=== PATIENT | female | born 2000 | race Caucasian/White ===

== ENCOUNTER 2025-05-25 18:51 | Inpatient (IN) | payer BC, OTHER ==
[~2025-05-25] VITALS: Ht 154.9 cm; Wt 64.0 kg
--- NOTE | 2025-05-25 19:23 | ED.PDOC ---
CAMPAIGN MANAGEMENT SPECIALIST HPI Comments 24 y/o F, with a history of DM I - on Humalog and Lantus, presents with c/c nausea, vomiting, and nonradiating, lower abdominal pain. Patient reports on being 6x weeks with her second , currently ([id number]). Endorsement of 3x day history of symptoms. Pain occurs whenever vomiting and is described as pressure-like in quality. Associated decrease food and liquid intake secondary to vomiting. Last CAMPAIGN MANAGEMENT SPECIALIST visit on 05/22/25; Ultrasound performed then was benign. No recent injuries, sexual activity, prior ailments, or additional pertinent history reported. Patient denies having any vaginal bleeding or discharge, urinary symptoms, bloody or bilious vomitus, constipation, or further associated symptoms. Chief Complaint: Nausea/Vomiting Time Seen by MD: 19:05 Reviewed Notes: Nurses Notes, Medications, Allergies Allergies: Coded Allergies: NO KNOWN ALLERGIES (Unverified , 05/25/25) Information Source: Patient Mode of Arrival: Ambulatory Timing: Days Prehospital treatment: None Severity: Moderate Vaginal Discharge: None Vaginal Lesions: None Vaginal Mass: None Onset Of Mass/Bleeding: Spontaneous Sexual Activity: Last Consensual [place]: Months Control: None History of: Current Blood Type: Unknown Associated Signs and Symptoms: Abdominal Pain, N/V Past Medical History PAST MEDICAL HISTORY: DM (type I - On 30 units/day Lantus and Humalog) Surgical History: Denies all surgeries 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: 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 all 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 SUPERVISOR Hx 2 Para 1 AB 0 Family History Family History: Unknown Social History Smoker: Non-Smoker Alcohol: Denies ETOH Use Drugs: Denies Drug Use Lives In: Home All Other Systems: Reviewed and Negative (Comprehensive review of systems are negative unless otherwise stated in HPI) Physical Exam General Appearance: No Apparent Distress, Normal HEENT: Normal ENT Inspection, Pharynx Normal, TMs Normal, Other (dry mucus membranes; no fruity breathe) Neck: Full Range of Motion, Non-Tender, Normal, Normal Inspection Respiratory: Chest Non-Tender, Lungs Clear, No Accessory Muscle Use, No Respiratory Distress, Normal Breath Sounds Cardiovascular: No Edema, No JVD, No Murmur, No Gallop, Normal Peripheral Pul ses, Tachycardia (regular rhythm) Breast Exam: Deferred Gastrointestinal: No Organomegaly, Non Tender, No Pulsatile Mass, Normal Bowel Sounds, Soft Genitalia: Deferred Pelvic: Deferred Rectal: Deferred Extremities: No calf tenderness, Normal capillary refill, Normal inspection, Normal range of motion, Non-tender, No pedal edema Musculoskeletal : Apperance: Normal Neurologic: Alert, research associate professor II-XII nml as Tested, No Motor Deficits, Normal Affect, Normal Mood, No Sensory Deficits Cerebellar Function: Normal Reflexes: Normal Skin: Dry, Normal Color, Warm Lymphatic: No Adenopathy Was a procedure done? Was a procedure done?: No Differential Diagnosis (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 SUPERVISOR) Vaginal Bleeding: N/A Mass / Lesion: N/A Vaginal Discharge: N/A Comments Hyperemesis gravidarum, dehydration, electrolyte imbalance, at-risk , viral syndrome, dka, hyperosmolar, nonketotic syndrome, euglycemic diabetic ketoacidosis X-Ray, Labs, Meds, VS Vital Signs Date Time Temp Pulse Resp B/P (MAP) Pulse Ox O2 Delivery O2 Flow Rate FiO2 05/25/25 18:53 98.5 118 15 140/84 97 98.5 Lab Test 05/25/25 19:22 Range/Units White Blood Count 13.6 H 4.4-10.8 10^3/uL Red Blood Count 5.02 4.0-5.20 10^6/uL Hemoglobin 14.9 12.2-16.2 g/dL Hematocrit 43.2 36.0-46.0 % Mean Corpuscular Volume 86.1 80.0-100.0 fL Mean Corpuscular Hemoglobin 29.7 28.0-32.0 pg Mean Corpuscular Hemoglobin Concent 34.5 32.0-36.0 g/dL Red Cell Distribution Width 13.3 11.8-14.3 % Platelet Count 423 140-450 10^3/uL Mean Platelet Volume 7.8 6.9-10.8 fL Neutrophils (%) (Auto) 83.2 H 37.0-80.0 % Lymphocytes (%) (Auto) 10.4 10.0-50.0 % Monocytes (%) (Auto) 5.5 0.0-12.0 % Eosinophils (%) (Auto) 0.5 0.0-7.0 % Basophils (%) (Auto) 0.4 0.0-2.0 % Neutrophils # (Auto) 11.3 H 1.6-8.6 10 ^3/uL Lymphocytes # (Auto) 1.4 0.4-5.4 10 ^3/uL Monocytes # (Auto) 0.7 0-1.3 10 ^3/uL Eosinophils # (Auto) 0.1 0-0.8 10 ^3/uL Basophils # (Auto) 0 0-0.2 10 ^3/uL Nucleated Red Blood Cells 0.0 % Sodium Level 135 L 136-145 mmol/L Potassium Level 3.9 3.5-5.1 mmol/L Chloride Level 102 98-107 mmol/L Carbon Dioxide Level 14 L 20-31 mmol/L Anion Gap 19 H 5-15 Blood Urea Nitrogen 12 9-23 mg/dL Creatinine 0.83 0.550-1.02 mg/dL Glomerular Filtration Rate Calc 100 >90 mL/min BUN/Creatinine Ratio 14.5 10.0-20.0 Serum Glucose 214 H 74-106 mg/dL Calcium Level 9.6 8.7-10.4 mg/dL Current Medications Medications (Trade) Dose Ordered Sig/Nando Route Start Time Stop Time Status Last Admin Sodium Chloride 1,000 ml @ 1,000 mls/hr Q1H ONCE IV 05/25/25 19:15 05/25/25 20:14 DC 05/25/25 19:39 Ondansetron HCl (Zofran Po) 4 mg ONCE ONCE PO 05/25/25 19:15 05/25/25 19:16 DC 05/25/25 19:41 Time of 1ST Reevaluation: 19:35 Reevaluation 1ST: Unchanged Patient Education/Counseling: Diagnosis, Treatment, Need For Follow Up Family Education/Counseling: Diagnosis, Treatment, Need For Follow Up Comments He is a diabetic patient who is about six weeks and had a normal ultrasound two days ago. However she has been out over NovoLog insulin the for few days. And now she is has nausea and vomiting. The workup shows that she is in diabetic ketoacidosis. She will be admitted for further treatment. Additional Information I reviewed the following notes from patient's past medical encounters: N/A The following tests were ordered, and results were reviewed by me: Marcus Miller MP, CBC, UA Additional Information was gathered from interviewing the following independent historians: N/A I reviewed and agreed with the following test results read by other providers: I discussed treatment and results with medical personnel. Departure 1 Departure Time of Disposition: 21:00 Impression: Primary Impression: DKA, type 1 Qualified Codes: E10.10 - Type 1 diabetes mellitus with ketoacidosis without coma Additional Impression: Noncompliance Disposition: ADMITTED INPATIENT Admit to: ICU Condition: Serious Critical Care Note Critical Care Time?: Yes (55 min-critical care time only) Critical care comment: Due to concerns for patients condition deteriorating, the care required my highest level of attention and readiness to intervene. I assessed the patient, reviewed the medical records, ordered the appropriate tests and treatments, then reassessed for results and responsiveness. I communicated with medical personnel and consultants and formulated a plan of care. Total critical care time excludes any procedures Stability Stability form required: No Heart Score Heart Score: Heart Score Response (Comments) Value History N/A 0 EKG N/A 0 Age N/A 0 Risk Factors N/A 0 Troponin N/A 0 Total 0 I personally scribed for FITO SAMUELS MD ([email or web address]) on 05/25/25 at 19:23. Electronically submitted by Marty Auguste ([email or web address]). FITO SAMUELS MD May 25, 2025 19:23
[2025-05-25 19:35] LABS: Chloride 102 mmol/L (98-107); Potassium 3.9 mmol/L (3.5-5.1)
[2025-05-25 19:36] LABS: Anion Gap 19 (5-15); Carbon Dioxide 14 mmol/L (20-31); Sodium 135 mmol/L (136-145)
[2025-05-25 19:37] LABS: Calcium 9.6 mg/dL (8.7-10.4); Hematocrit 43.2 % (36.0-46.0); Hemoglobin 14.9 g/dL (12.2-16.2); Mean Corpuscular Hemoglobin 29.7 pg (28.0-32.0); Mean Corpuscular Volume 86.1 fL (80.0-100.0); Nucleated Red Blood Cells % 0.0 %
[2025-05-25] MEDS: SODIUM CHLORIDE 0.9% 1,000 ML IV ONE (19:39)
[2025-05-25 19:41] LABS: BUN/Creatinine Ratio 14.5 (10.0-20.0); Blood Urea Nitrogen 12 mg/dL (9-23)
[2025-05-25] MEDS: ONDANSETRON ODT 4 MG TAB PO ONE (19:41)
[2025-05-25 19:42] LABS: Glucose 214 mg/dL (74-106)
[2025-05-25] MEDS: ACCU-CHEK COMFORT CURVE STRIP VI SCH (21:00)
[2025-05-25 21:50] LABS: Magnesium 1.8 mg/dL (1.6-2.6)
[2025-05-25 21:57] VITALS: PULSE 100; RESP 20; O2SAT 95
[2025-05-25] MEDS: SODIUM CHLORIDE 0.9% 1,000 ML IV SCH ×2 (22:07→23:30)
[2025-05-25] MEDS: INSULIN LANTUS (GLARGINE) 1 /0.01ml (100units/ml) SC ONE (22:10)
[2025-05-25] MEDS: INSULIN DRIP 100 UNIT/100ML 100 ML IV SCH (23:25)
[2025-05-25] MEDS ORDERED: NITROGLYCERIN 0.4 MG SL TAB SL PRN (23:30)
[2025-05-25] MEDS ORDERED: DOCUSATE SOD 100 MG CAP PO PRN (23:30)
[2025-05-25] MEDS ORDERED: MORPHINE SULFATE INJ 2 MG/ml SYRG IV PRN (23:30)
[2025-05-25 23:45] VITALS: PULSE 98; RESP 20; O2SAT 98
[2025-05-26] VITALS (13 sets, daily range): BP systolic 122–133; BP diastolic 63–76; PULSE 79–100; RESP 14–18; TEMP 97.8–98.8; O2SAT 97–100
[2025-05-26] MEDS: SODIUM CHLORIDE 0.9% 1,000 ML IV SCH ×2 (01:00→03:00)
[2025-05-26] MEDS: D5W/SOD CHLO 0.9% 1,000 ML IV SCH (03:30)
[2025-05-26] MEDS: ONDANSETRON HCL 4 MG/2 ML VIAL IV ONE (04:00)
[2025-05-26] MEDS ORDERED: PROM6.2520 PO (04:20)
[2025-05-26] MEDS: DEXTROSE (50%) 50ML SYRG IV PRN (04:20)
[2025-05-26] MEDS: FOLIC ACID 1 MG in D5W 5% 50 ML INJ ONE (04:30)
[2025-05-26] MEDS: PYRIDOXINE HCL 50 MG TAB PO ONE (04:30)
[2025-05-26] MEDS: LINEZOLID 600MG/300ML 300 ML IV SCH (05:02)
[2025-05-26 05:49] LABS: COVID19 ANTIGEN SOFIA FIA NEGATIVE (NEGATIVE)
[2025-05-26 05:51] LABS: Hematocrit 36.3 % (36.0-46.0); Hemoglobin 12.4 g/dL (12.2-16.2); Mean Corpuscular Hemoglobin 30.1 pg (28.0-32.0); Mean Corpuscular Volume 87.8 fL (80.0-100.0); Nucleated Red Blood Cells % 0.0 %
[2025-05-26] MEDS: CEFEPIME 1GM/ 50ML 50 ML IV SCH (06:00)
[2025-05-26 06:29] LABS: Alanine Aminotransferase 16 U/L (7-40); Albumin 3.9 g/dL (3.2-4.8); Alkaline Phosphatase 67 U/L (46-116); Anion Gap 14 (5-15); BUN/Creatinine Ratio 21.1 (10.0-20.0); Blood Urea Nitrogen 12 mg/dL (9-23); Potassium 3.7 mmol/L (3.5-5.1); Sodium 138 mmol/L (136-145); Total Protein 5.9 g/dL (5.7-8.2)
[2025-05-26 06:30] LABS: Bilirubin, Total 0.8 mg/dL (0.2-1.0)
[2025-05-26 06:34] LABS: Thyroid Stimulating Hormone 1.56 uIU/mL (0.55-4.78)
[2025-05-26 06:36] LABS: Calcium 8.0 mg/dL (8.7-10.4); Carbon Dioxide 16 mmol/L (20-31); Chloride 108 mmol/L (98-107); Glucose 235 mg/dL (74-106)
[2025-05-26 06:42] LABS: Beta HCG, Quantitative 58442.7 mIU/mL (1.5-4.2)
--- NOTE | 2025-05-26 07:12 | DVHHPRES ---
History of Present Illness Resident Creating Document: EARNEST PAREKH RESIDENT History of Present Illness 24-year-old Thai speaking 6 week female with past medical history of type 1 diabetes mellitus presented with complaints of nausea and vomiting since 3 days. She vomited 5 times in total in the past 3 days and he says she has not had anything to eat. She says the pain was 7 on 10 in intensity. The labs showed WBC of 13.6, with neutrophils of 83%. Blood glucose was 214. OBGYN was consulted. Patient is being treated with IV antibiotics for sepsis and IV fluids, insulin and potassium for diabetic ketoacidosis. PMHx:type 1 diabetes mellitus PSHx: Patient denies Family history: Stomach cancer in father at age 50 Social history: Denies alcohol smoking or illicit drugs Home medication: Lantus 30 urinate at night, lispro 5-10 units pre meal. Allergic history: Denies Lives with family Review of Systems Review of Systems General: patient denies fever, fatigue, weaknes, sweating, any recent changes in appetite and weight HEENT: No headaches, visiual changes, hearing loss, tinnitus, nasal congestion and discharge, and sore throat. Cardiovascular: Denies chest pain, palpitations, dyspnea on exertion, orthopnea, or claudication. Respiratory: No cough, and wheezing. Gastrointestinal: Complains of mild nausea and abdominal pain. Genitourinary: No dysuria, hematuria, discharge, frequency, urgency, nocturia, incontinence, and urinary retention. Endocrine: No heat or cold intolerance, polydipsia, polyuria, and polyphagia. Neurological: No dizziness, extremity weakness and numbness, tremors, gait disturbance, seizures, and memory impairment. Psychiatric: Denies depression, anxiety,or insomnia. Musculoskeletal: Denies neck pain, stiffness and swelling, back pain, muscle weakness, joint pain, stiffness, swelling, or limited range of motion. Skin: No rashes, itching, skin lesion, changes in hair, nail, skin texture and breast. Hematologic/Lymphatic: Denies easy bruising, bleeding tendencies, or lymph node enlargement. Allergies: Coded Allergies: NO KNOWN ALLERGIES (Unverified , 05/25/25) Medications Current Medications Medications Dose Ordered Sig/Nando Route Start Time Stop Time Status Last Admin Dose Admin Insulin Human (Reg)/Sodium Chloride 100 ml @ 0.5 mls/hr Q24H IV 05/25/25 21:00 05/25/25 23:25 2 MLS/HR Dextrose 50 ml UD PRN IV 05/25/25 21:00 05/26/25 04:20 50 ML Diagnostic Test (Pha) 1 strip Q90MIN 05/25/25 21:00 05/26/25 06:00 1 STRIP Acetaminophen 325 mg Q4HP PRN PO 05/25/25 23:30 Docusate Sodium 100 mg BIDPRN PRN PO 05/25/25 23:30 Nitroglycerin 0.4 mg Q5MINP PRN SL 05/25/25 23:30 Morphine Sulfate 2 mg Q30M PRN IV 05/25/25 23:30 Dextrose/Sodium Chloride 1,000 ml @ 100 mls/hr Q10H IV 05/26/25 03:30 05/26/25 03:30 100 MLS/HR Linezolid 300 ml @ 150 mls/hr Q12HR@0500,1700 IV 05/26/25 05:00 05/26/25 05:02 150 MLS/HR Cefepime HCl 50 ml @ 12.5 mls/hr Q8HR IV 05/26/25 06:00 Pyridoxine HCl 100 mg DAILY PO 05/27/25 10:00 Folic Acid 1 mg DAILY PO 05/27/25 10:00 Multivitamins/ Minerals 1 tab DAILY PO 05/26/25 10:00 Exam Vital Signs Vital Signs Date Time Temp Pulse Resp B/P (MAP) Pulse Ox O2 Delivery O2 Flow Rate FiO2 05/26/25 03:03 90 20 124/77 (93) 98 05/25/25 23:45 98.5 98.5 05/25/25 23:45 Room Air* 0 21 Exam General Appearance: Alert, Oriented X3, Cooperative, No acute distress HEENT: Atraumatic, PERRLA, EOMI, Mucous membrane moist/pink Respiratory: Clear to auscultation, Normal air movement Cardiovascular: Regular rate, Normal S1, Normal S2, No murmurs, no chest wall tenderness Abdominal: Tenderness in the right lower quadrant Extremities: No clubbing, No cyanosis, No edema, Normal pulses, No tenderness/swelling Skin: No rashes, No breakdown, No significant lesion Neuro: Normal gait, Normal speech, Strength at 5/5 X4 ext, Normal tone, Sensation intact, Cranial nerves 3-12 NL, Reflexes 2+ Psych/Mental Status: Mental status NL, Mood NL Labs/Xrays Labs Test 05/26/25 05:18 05/26/25 04:14 05/26/25 04:02 05/26/25 00:00 Range/Units White Blood Count 9.1 # 4.4-10.8 10^3/uL Red Blood Count 4.13 4.0-5.20 10^6/uL Hemoglobin 12.4 # 12.2-16.2 g/dL Hematocrit 36.3 # 36.0-46.0 % Mean Corpuscular Volume 87.8 80.0-100.0 fL Mean Corpuscular Hemoglobin 30.1 28.0-32.0 pg Mean Corpuscular Hemoglobin Concent 34.3 32.0-36.0 g/dL Red Cell Distribution Width 13.3 11.8-14.3 % Platelet Count 293 140-450 10^3/uL Mean Platelet Volume 7.9 6.9-10.8 fL Neutrophils (%) (Auto) 71.5 37.0-80.0 % Lymphocytes (%) (Auto) 18.8 10.0-50.0 % Monocytes (%) (Auto) 8.2 0.0-12.0 % Eosinophils (%) (Auto) 1.0 0.0-7.0 % Basophils (%) (Auto) 0.5 0.0-2.0 % Neutrophils # (Auto) 6.5 1.6-8.6 10 ^3/uL Lymphocytes # (Auto) 1.7 0.4-5.4 10 ^3/uL Monocytes # (Auto) 0.7 0-1.3 10 ^3/uL Eosinophils # (Auto) 0.1 0-0.8 10 ^3/uL Basophils # (Auto) 0 0-0.2 10 ^3/uL Nucleated Red Blood Cells 0.0 % Hemoglobin A1c 7.0 H <5.7 % A1C POC Glucose 101 70-106 mg/dl Influenza Type A Antigen Negative Negative Influenza Type B Antigen Negative Negative SARS-CoV-2 Antigen (Rapid) Negative NEGATIVE Test 05/25/25 21:45 05/25/25 19:22 Range/Units Blood Gas Specimen Type Venous Blood Gas Sample Site Vbg - n/a Blood Gas Patient Temperature 37.0 Arterial Blood Date Drawn [id number] Matheus Test N/a Venous Blood pH 7.361 7.320-7.430 Venous Blood pCO2 at Patient Temp 31.4 L 38.0-54.0 mmHg Venous Blood pO2 at Patient Temp < 36.5 23.0-48.0 mmHg Venous Blood HCO3 17.4 L 22.0-29.0 mmol/L Venous Blood Base Excess -6.8 L -2.0-3.0 mmol/L Blood Gas Modality Room air FiO2 % 21.0 Serum Osmolality 292 278-298 mOsm/kg Phosphorus Level 4.2 2.4-5.1 mg/dL Magnesium Level 1.8 1.6-2.6 mg/dL Beta-Hydroxybutyric Acid > 4.500 H < 0.4 mmol/L SEPSIS Sepsis Screen Date sepsis recognized/suspect: May 25, 2025 Time Sepsis recognized/suspect: 2344 Recent Procedure: No On Antibiotic Therapy: No Respiratory Rate >20: No Heart Rate >90: Yes Temp<36 C (96.8 F) or >38.3 C: No SBP <90 or MAP <65 mmHG: No New Acute Mental Status Change: No Is the patient on CPAP, BIPAP,: No Physician Orders Admit (05/25/25 23:29) Allergies (05/25/25:) Code Status (05/25/25:29) Acetaminophen Tablet (Tylenol Tablet) (05/25/25 23:30) Docusate Sodium Capsule (Colace Capsule) (05/25/25 23:30) Comprehensive Metabolic Panel (05/26/25 04:00) Condition: Fair (05/25/25 23:29) Bedrest With Bathroom Privileg (05/25/25 23:29) Sequential Compression Device (05/25/25 ) Nitroglycerin Sublingual (Ntrostat Subli (05/25/25 23:30) Morphine Sulfate Injection (05/25/25 23:30) Oxygen By Nasal Cannula (05/25/25:29) Stat Ekg For Chest Pain (05/25/25 23:29) Notify Md Of Changes From Base (05/25/25 23:29) Welt Edge Rounder For 24 Hours (05/25/25 23:29) Emergency Dysrhythmia Protocol (05/25/25 23:29) Rhythm Strips Once Every Shift (05/25/25 23:29) Potassium Chloride (Potassium Chloride). (05/26/25 08:00) D5w/Sod Chlo 0.9% (D5w Ns 0.9%) (05/26/25 03:30) Blood Culture (05/26/25 03:56) Beta Hcg, Quantitative (05/26/25 03:56) Thyroid Stimulating Hormone (05/26/25 03:56) Urinalysis (05/26/25 03:56) Drug Screen (05/26/25 03:56) Blood Alcohol (05/26/25 03:56) Lactic Acid W/ Reflex Order (05/26/25 03:56) * Batch Trucker Consultation (05/26/25 04:01) Clostridium Difficile Toxin (05/26/25 04:02) Ova & Parasite Exam (05/26/25 04:02) Stool Bacterial Culture (05/26/25 04:02) Stool Occult Blood (05/26/25 04:02) Gram Stain (05/26/25 04:02) Stool Wbc (05/26/25 04:02) Mrsa Screen (05/26/25 04:02) Respiratory Culture W/ Gs (05/26/25 04:02) Pelvic (05/26/25 04:02) Npo (Nothing By Mouth) Diet (05/26/25 Breakfast) Linezolid 600mg/300ml (Zyvox) (05/26/25 05:00) Cefepime 1gm/ 50ml (Maxipime 1gm/50ml) (05/26/25 06:00) Chlamydia/Gc Amplification (05/26/25 04:15) Multiple Vitamin W Mineral Tab (Mvi W/ M (05/26/25 10:00) Transfer Orders (05/26/25 04:20) Folic Acid Tablet (05/27/25 10:00) Abdomen Complete Sonogram (05/26/25 04:21) Pyridoxine Hcl Tablet (Vitamin B-6 Table (05/27/25 10:00) Basic Metabolic Panel (05/26/25 15:00) Vital Signs Date Time Temp Pulse Resp B/P (MAP) Pulse Ox O2 Delivery O2 Flow Rate FiO2 05/26/25 03:03 90 20 124/77 (93) 98 05/26/25 01:00 97 20 118/69 (85) 98 05/25/25 23:45 98.5 99 20 122/65 (84) 98 98.5 05/25/25 23:45 98 20 98 Room Air* 0 21 Laboratory Tests Test 05/25/25 19:22 05/26/25 05:18 White Blood Count 13.6 10^3/uL (4.4-10.8) H 9.1 10^3/uL (4.4-10.8) # Lactic Acid Level Pending Medications Medications Dose Ordered Sig/Nando Route Start Time Stop Time Status Last Admin Dose Admin Dextrose 50 ml UD PRN IV 05/25/25 21:00 05/26/25 04:20 50 ML Dextrose/Sodium Chloride 1,000 ml @ 100 mls/hr Q10H IV 05/26/25 03:30 05/26/25 03:30 100 MLS/HR Diagnostic Test (Pha) 1 strip Q90MIN 05/25/25 21:00 05/26/25 06:00 1 STRIP Insulin Glargine 15 units ONCE ONCE SC 05/25/25 21:00 05/25/25 21:05 DC 05/25/25 22:10 15 UNITS Insulin Human (Reg)/Sodium Chloride 100 ml @ 0.5 mls/hr Q24H IV 05/25/25 21:00 05/25/25 23:25 2 MLS/HR Linezolid 300 ml @ 150 mls/hr Q12HR@0500,1700 IV 05/26/25 05:00 05/26/25 05:02 150 MLS/HR Ondansetron HCl 4 mg ONCE ONCE IV 05/26/25 04:00 05/26/25 04:01 DC 05/26/25 04:00 4 MG Ondansetron HCl 4 mg ONCE ONCE PO 05/25/25 19:15 05/25/25 19:16 DC 05/25/25 19:41 4 MG Pyridoxine HCl 100 mg ONCE ONCE PO 05/26/25 04:30 05/26/25 04:31 DC 05/26/25 04:30 100 MG Sodium Chloride 1,000 ml @ 60 mls/hr [id number] IV 05/25/25 23:30 05/26/25 03:30 DC 05/25/25 23:30 60 MLS/HR Sodium Chloride 1,000 ml @ 500 mls/hr Q2H IV 05/25/25 21:00 05/26/25 00:59 DC 05/25/25 23:00 500 MLS/HR Sodium Chloride 1,000 ml @ 1,000 mls/hr Q1H ONCE IV 05/25/25 19:15 05/25/25 20:14 DC 05/25/25 19:39 1,000 MLS/HR Assessment/Plan Assessment/Plan Diabetic ketoacidosis On insulin Potassium 3.9, supplemented, monitor potassium levels On IV fluids Sepsis Neutrophilic leukocytosis On IV cefepime and linezolid Type 1 diabetes mellitus , 6 weeks gestational age OBGYN consultation given Plan discussed with: Patient My Orders Orders - EARNEST PAREKH RESIDENT Procedure Category Date Status Time Admit ADMIT 05/25/25 Transmitted 23:29 Allergies FREDY 05/25/25 In Process 23:29 Code Status CODE 05/25/25 Transmitted 23:29 Acetaminophen Tablet PHA 05/25/25 In Process (Tylenol Tablet) 23:30 Docusate Sodium PHA 05/25/25 In Process Capsule (Colace 23:30 Comprehensive LAB 05/26/25 In Process Metabolic Panel 04:00 Condition: Fair FREDY 05/25/25 In Process 23:29 Bedrest With Bathroom FREDY 05/25/25 In Process Privileg 23:29 Sequential FREDY 05/25/25 In Process Compression Device Nitroglycerin PHA 05/25/25 In Process Sublingual (Ntrostat 23:30 Morphine Sulfate PHA 05/25/25 In Process Injection 23:30 Oxygen By Nasal RT 05/25/25 Transmitted Cannula 23:29 Stat Ekg For Chest FREDY 05/25/25 In Process Pain 23:29 Notify Of Changes FREDY 05/25/25 In Process From Base 23:29 Welt Edge Rounder For FREDY 05/25/25 In Process 24 Hours 23:29 Emergency Dysrhythmia FREDY 05/25/25 In Process Protocol 23:29 Rhythm Strips Once FREDY 05/25/25 In Process Every Shift 23:29 Potassium Chloride PHA 05/26/25 In Process (Potassium Chloride). 08:00 D5w/Sod Chlo 0.9% PHA 05/26/25 In Process (D5w Ns 0.9%) 03:30 Date of Service: May 26, 2025 Billing Provider: DEVON CANTOR MD Common Visit Codes: 41121-LASEDMO INP/OBS CARE (HIGH) Secondary Visit Codes: 22556-LIHIZMFH CARE PLAN 30 MINUTES EARNEST PAREKH RESIDENT May 26, 2025 06:40
--- NOTE | 2025-05-26 08:08 | DVH ---
OB ULTRASOUND <14 WEEKS: HISTORY: rule out intrauterine anomaly / TECHNIQUE: Multiple real-time grayscale sonographic images of the pelvis with duplex Doppler color f low, spectral and M-mode analysis. TRANSDUCERS: TA FINDINGS: The uterus measures 14 x 5 x 7 cm. The cervix was not seen Right ovary measures 3 x 2 x 2 cm with normal Doppler color flow Left ovary measures 5 x 3 x 2 cm with normal Doppler color flow IUP single live fetus at 6 weeks 6 days average ultrasound age based on mean crown-rump length of 0. 9 cm and gestational sac size of 2 cm heart rate detected at 126 beats per minute. Yolk sac was not seen . IMPRESSION: IUP single live fetus 6 weeks 6 day s AUA corresponding to an OLIVA of 4-14-25. Small subchorionic hemorrhage measuring 8 mm
--- NOTE | 2025-05-26 08:49 | DVH ---
INDICATION: hepatobiliary and renal dx TECHNIQUE: Multiple real-time sonographic images of the abdomen were obtained. COMPARISON: None FINDINGS: The liver is homogenous in echogenicity. The liver measures 14.9 cm. No intrahepatic bilia ry ductal dilatation is noted. The gallbladder wall measures 0.2 cm and is unremarkable. No gallstones or sludge is seen. The comm on duct measures 0.4 cm and is unremarkable. No pericholecystic fluid is noted. The right kidney measures 10.6 cm. No hydronephrosis. The left kidney measures 10.4 cm. No hydroneph rosis. The spleen measures 9.5 cm, within normal limits. The echogenicity is within normal limits. The pancreas is not well visualized due to obscuration from bowel gas. The visualized portions of the IVC and aorta are grossly unremarkable. IMPRESSION: 1. No acute process in the abdomen.
[2025-05-26] MEDS ORDERED: INSULIN LANTUS (GLARGINE) 1 /0.01ml (100units/ml) SC SCH (10:00)
[2025-05-26 10:04] LABS: Urine Budding Yeast OCCASIONAL /hpf (None Seen); Urine Protein, UAD TRACE (Negative)
[2025-05-26] MEDS: POTASSIUM CHLORIDE 20 MEQ, LIDOCAINE 1% (LOCAL ANESTH.) 2 ML in SODIUM CHL 0.9% 100 ML IV ONE (10:09)
[2025-05-26 10:12] LABS: Barbiturate Scree,Urine Neg (NEGATIVE); Opiate Scree,Urine Neg (NEGATIVE)
[2025-05-26 10:13] LABS: Amphetamine Screen, Urine Neg (NEGATIVE); Benzodiazephine Screen, Urine Neg (NEGATIVE); Cannabinoid Screen, Urine Neg (NEGATIVE); Cocaine Screen, Urine Neg (NEGATIVE); Phencyclidine Screen, Urine Neg (NEGATIVE)
[2025-05-26] MEDS: MULTIPLE VITAMINS W/ MINERALS TAB PO SCH (10:20)
[2025-05-26 13:33] LABS: Chloride 109 mmol/L (98-107); Potassium 3.8 mmol/L (3.5-5.1); Sodium 137 mmol/L (136-145)
[2025-05-26 13:34] LABS: Anion Gap 16 (5-15)
[2025-05-26 13:36] LABS: Calcium 8.3 mg/dL (8.7-10.4); Carbon Dioxide 12 mmol/L (20-31)
[2025-05-26 13:39] LABS: BUN/Creatinine Ratio 15.0 (10.0-20.0); Blood Urea Nitrogen 9 mg/dL (9-23)
[2025-05-26 13:41] LABS: Glucose 230 mg/dL (74-106)
[2025-05-26 15:55] LABS: Potassium 3.8 mmol/L (3.5-5.1); Sodium 138 mmol/L (136-145)
[2025-05-26 15:56] LABS: Anion Gap 12 (5-15); Calcium 8.5 mg/dL (8.7-10.4); Carbon Dioxide 16 mmol/L (20-31); Chloride 110 mmol/L (98-107)
[2025-05-26 16:01] LABS: BUN/Creatinine Ratio 13.7 (10.0-20.0)
[2025-05-26 16:06] LABS: Blood Urea Nitrogen 7 mg/dL (9-23); Glucose 154 mg/dL (74-106)
[2025-05-26 18:12] LABS: Sodium 138 mmol/L (136-145)
[2025-05-26 18:13] LABS: Anion Gap 11 (5-15)
[2025-05-26 18:16] LABS: Calcium 8.4 mg/dL (8.7-10.4); Carbon Dioxide 16 mmol/L (20-31); Chloride 111 mmol/L (98-107); Potassium 3.5 mmol/L (3.5-5.1)
[2025-05-26 18:19] LABS: BUN/Creatinine Ratio 10.4 (10.0-20.0); Blood Urea Nitrogen < 5 mg/dL (9-23); Glucose 114 mg/dL (74-106)
[2025-05-27] VITALS (32 sets, daily range): BP systolic 108–137; BP diastolic 60–82; PULSE 68–107; RESP 16–18; TEMP 98–98.9; O2SAT 96–99
[2025-05-27] MEDS: InsuLIN REG 1unit/0.01ml Soln (100units/ml) SC SCH ×2 (00:06→16:15)
[2025-05-27] MEDS: METOCLOPRAMIDE HCL 5MG/ml INJ 2ml VIAL IV PRN (00:38)
[2025-05-27] MEDS: ACETAMINOPHEN 325 MG TAB PO PRN (04:36)
[2025-05-27] MEDS ORDERED: InsuLIN REG 1unit/0.01ml Soln (100units/ml) SC SCH ×6 (07:00→22:00)
--- NOTE | 2025-05-27 07:24 | DVHINCON2 ---
Date of service: May 26, 2025 Referring Physician hospitalist Reason for Consultation and DKA History of Present Illness PT IS ADMITTED FOR DKA,SHE IS 6WKS .PT DENIES Any vag bleeding or discharge .pt ahs ob care however her hgba1c is 7.her pelvic us reveals iup at 6w6d with edc of 01-13-26 Past Medical History dm Past Surgical History none Family History stomach ca Social History one Patient Family History: FH: stomach cancer Allergies: Coded Allergies: NO KNOWN ALLERGIES (Unverified , 05/25/25) Home Meds Reported Medications Promethazine HCl (Promethazine HCl) 6.25 Mg/5 Ml Syp, 1 PO 05/26/25 Current Medications Current Medications Medications (Trade) Dose Ordered Sig/Nando Route PRN Reason Start Time Stop Time Status Last Admin Insulin Glargine (Lantus) 15 units DAILY SC 05/26/25 10:00 05/26/25 04:09 DC Pyridoxine HCl (Vitamin B-6 Tablet) 100 mg DAILY PO 05/27/25 10:00 Folic Acid 1 mg DAILY PO 05/27/25 10:00 Multivitamins/ Minerals (Mvi W/ Minerals Tablet) 1 tab DAILY PO 05/26/25 10:00 05/26/25 10:20 Metoclopramide HCl (Reglan Injection) 10 mg Q8HPRN PRN IV NAUSEA / VOMITING 05/26/25 15:30 05/27/25 00:38 Insulin Human Regular (InsuLIN R) AC SC 05/27/25 07:00 05/26/25 23:00 DC Insulin Human Regular (InsuLIN R) Q4HR SC 05/27/25 00:00 05/27/25 06:22 Review of Systems Constitutional: no fever, chill, weight loss HEENT: no eye pain, no hearing loss, no oral lesion, no scleral icterus Heart: no chest pain, no chest pressure Lung: no cough, no dyspnea with exertion Abdomen: see HPI : no pain with urination, normal appearing urine Musculoskeletal: no joint pain, no muscle pain Neurological: no seizure, no loss of sensation, no weakness in extremities Pysch: no depression, no anxiety Derm: no rash, no jaundice Vital Signs Vital Signs Date Time Temp Pulse Resp B/P (MAP) Pulse Ox O2 Delivery O2 Flow Rate FiO2 05/27/25 07:00 80 17 99 05/27/25 06:09 Room Air* 0 21 05/27/25 04:00 98.9 98.9 Physical Exam SKIN: [nl] HEENT: [nl] breasts-symmetrical,no masses CARDIAC: [rrr] PULMONARY: [cta] ABDOMEN: [soft,nt ,pos bowl sounds] pelvic-ext gent wnl,vag nl,cx nl,uterus 9 wks size,adenxa nt ext- no cce Labs/Diagnostic Data Labs Test 05/27/25 06:11 05/26/25 17:51 05/26/25 09:33 05/26/25 05:18 Range/Units POC Glucose 256 H 70-106 mg/dl Sodium Level 138 136-145 mmol/L Potassium Level 3.5 3.5-5.1 mmol/L Chloride Level 111 H 98-107 mmol/L Carbon Dioxide Level 16 L 20-31 mmol/L Anion Gap 11 5-15 Blood Urea Nitrogen < 5 L 9-23 mg/dL Creatinine 0.48 L 0.550-1.02 mg/dL Glomerular Filtration Rate Calc 135 >90 mL/min BUN/Creatinine Ratio 10.4 10.0-20.0 Serum Glucose 114 H 74-106 mg/dL Calcium Level 8.4 L 8.7-10.4 mg/dL Beta-Hydroxybutyric Acid 0.790 H < 0.4 mmol/L Urine Color Light-orange Yellow Urine Clarity Turbid H Clear Urine pH 6.0 5.0-9.0 Urine Specific [place] 1.031 1.001-1.035 Urine Protein Trace H Negative Urine Ketones 4+ H Negative Urine Blood Trace H Negative /uL Urine Nitrite Negative Negative Urine Bilirubin Negative Negative Urine Urobilinogen Normal Negative mg/dL Urine Leukocyte Esterase 3+ Negative /uL Urine RBC 2 0 - 4 /hpf Urine Microscopic WBC 41 H 0-5 /HPF Urine Squamous Epithelial Cells Mod <5 /hpf Urine Bacteria None seen None Seen /hpf Urine Hyaline Casts Few 0 - 2 /lpf Urine Mucus Few None Seen Urine Yeast (Budding) Occasional None Seen /hpf Urine Glucose 4+ H Normal mg/dL Urine Opiates Screen Neg NEGATIVE Urine Fentanyl Screen Neg NEGATIVE Urine Barbiturates Screen Neg NEGATIVE Urine Phencyclidine Screen Neg NEGATIVE Urine Amphetamines Screen Neg NEGATIVE Urine Benzodiazepines Screen Neg NEGATIVE Urine Cocaine Screen Neg NEGATIVE Urine Cannabinoids Screen Neg NEGATIVE White Blood Count 9.1 # 4.4-10.8 10^3/uL Red Blood Count 4.13 4.0-5.20 10^6/uL Hemoglobin 12.4 # 12.2-16.2 g/dL Hematocrit 36.3 # 36.0-46.0 % Mean Corpuscular Volume 87.8 80.0-100.0 fL Mean Corpuscular Hemoglobin 30.1 28.0-32.0 pg Mean Corpuscular Hemoglobin Concent 34.3 32.0-36.0 g/dL Red Cell Distribution Width 13.3 11.8-14.3 % Platelet Count 293 140-450 10^3/uL Mean Platelet Volume 7.9 6.9-10.8 fL Neutrophils (%) (Auto) 71.5 37.0-80.0 % Lymphocytes (%) (Auto) 18.8 10.0-50.0 % Monocytes (%) (Auto) 8.2 0.0-12.0 % Eosinophils (%) (Auto) 1.0 0.0-7.0 % Basophils (%) (Auto) 0.5 0.0-2.0 % Neutrophils # (Auto) 6.5 1.6-8.6 10 ^3/uL Lymphocytes # (Auto) 1.7 0.4-5.4 10 ^3/uL Monocytes # (Auto) 0.7 0-1.3 10 ^3/uL Eosinophils # (Auto) 0.1 0-0.8 10 ^3/uL Basophils # (Auto) 0 0-0.2 10 ^3/uL Nucleated Red Blood Cells 0.0 % Hemoglobin A1c 7.0 H <5.7 % A1C Lactic Acid Level 0.9 0.4-2.0 mmol/L Total Bilirubin 0.8 0.2-1.0 mg/dL Aspartate Amino Transferase (AST) 13 13-40 U/L Alanine Aminotransferase (ALT) 16 7-40 U/L Alkaline Phosphatase 67 46-116 U/L Total Protein 5.9 5.7-8.2 g/dL Albumin 3.9 3.2-4.8 g/dL Thyroid Stimulating Hormone (TSH) 1.56 0.55-4.78 uIU/mL Beta HCG, Quantitative 80068.7 H 1.5-4.2 mIU/mL Plasma/Serum Blood Alcohol < 3.0 <10 mg/dL Test 05/26/25 04:02 05/26/25 00:00 05/25/25 21:45 05/25/25 19:22 Range/Units Influenza Type A Antigen Negative Negative Influenza Type B Antigen Negative Negative SARS-CoV-2 Antigen (Rapid) Negative NEGATIVE Blood Gas Specimen Type Venous Blood Gas Sample Site Vbg - n/a Blood Gas Patient Temperature 37.0 Arterial Blood Date Drawn [id number] Matheus Test N/a Venous Blood pH 7.361 7.320-7.430 Venous Blood pCO2 at Patient Temp 31.4 L 38.0-54.0 mmHg Venous Blood pO2 at Patient Temp < 36.5 23.0-48.0 mmHg Venous Blood HCO3 17.4 L 22.0-29.0 mmol/L Venous Blood Base Excess -6.8 L -2.0-3.0 mmol/L Blood Gas Modality Room air FiO2 % 21.0 Serum Osmolality 292 278-298 mOsm/kg Phosphorus Level 4.2 2.4-5.1 mg/dL Magnesium Level 1.8 1.6-2.6 mg/dL Microbiology Date/Time Source Procedure Growth Status 05/26/25 05:18 Blood Blood Culture - Preliminary NO GROWTH AFTER 24 HOURS OF INCUBATION. Resulted Primary Diagnosis DKA IUP AT 6WKS Plan SUPPORTIVE CARE KEEP HGBA1C BELOW 5.7 FOR GOOD OUTCOME WITH PT ADVISED TO HAVE BETTER DIABETIC CONTROL WILL SIGN OFF THANK YOU FOR THIS CONSULTATION Plan discussed with: Patient Visit Coding OBGYN Date of Service: May 26, 2025 Billing Provider: RIMA WIGGINS DO ROAD INSPECTOR Common Visit Codes: [id number] OBS CARE (HIGH) ROAD INSPECTOR Consultation Codes: [id number] CONSULT <110MIN RIMA WIGGINS DO May 27, 2025 07:24
[2025-05-27] MEDS: FOLIC ACID 1 MG TAB PO SCH (08:22)
[2025-05-27] MEDS: PYRIDOXINE HCL 50 MG TAB PO SCH (10:00)
--- NOTE | 2025-05-27 11:43 | DVHPN2 ---
Subjective Patient seems him at bedside. Feel much better. No nausea or vomiting. No fever. Off insulin drip. Reviewed: Care Plan, H&P, Labs, Medications, Previous Orders, Radiology Changes from previous H/P or p: No Changes Objective Vitals Vital Signs Date Time Temp Pulse Resp B/P (MAP) Pulse Ox O2 Delivery O2 Flow Rate FiO2 05/27/25 11:00 87 18 121/73 (89) 99 Manual Cuff/Auscultation 05/27/25 10:00 Room Air* 0 21 05/27/25 08:00 98.6 98.6 Intake/Output Intake and Output 05/27/25 07:00 Intake Total 2649.5 ml Output Total 880 ml Balance 1769.5 ml Intake IV Total 2649.5 ml Output Urine Total 880 ml General Appearance: Alert, Oriented X3, Cooperative, No acute distress HEENT: Atraumatic, PERRLA, EOMI, Mucous membr. moist/pink Neck: Full Range of Motion Lungs: Clear to auscultation, Normal air movement Cardiovascular: Regular rate, Normal S1, Normal S2, No murmurs, Gallops, Rubs Abdomen: Normal bowel sounds, Soft, No tenderness Neuro: Cranial nerves 3-12 NL Psych/Mental Status: Mental status NL Medications Current Medications Medications Dose Ordered Sig/Nando Route Start Time Stop Time Status Last Admin Dose Admin Insulin Human (Reg)/Sodium Chloride 100 ml @ 0.5 mls/hr Q24H IV 05/25/25 21:00 05/26/25 14:49 1 MLS/HR Dextrose 50 ml UD PRN IV 05/25/25 21:00 05/26/25 04:20 50 ML Acetaminophen 325 mg Q4HP PRN PO 05/25/25 23:30 05/27/25 04:36 325 MG Docusate Sodium 100 mg BIDPRN PRN PO 05/25/25 23:30 Nitroglycerin 0.4 mg Q5MINP PRN SL 05/25/25 23:30 Morphine Sulfate 2 mg Q30M PRN IV 05/25/25 23:30 Dextrose/Sodium Chloride 1,000 ml @ 100 mls/hr Q10H IV 05/26/25 03:30 05/27/25 10:40 100 MLS/HR Linezolid 300 ml @ 150 mls/hr Q12HR@0500,1700 IV 05/26/25 05:00 05/27/25 04:52 150 MLS/HR Cefepime HCl 50 ml @ 12.5 mls/hr Q8HR IV 05/26/25 06:00 05/27/25 05:52 12.5 MLS/HR Pyridoxine HCl 100 mg DAILY PO 05/27/25 10:00 Folic Acid 1 mg DAILY PO 05/27/25 10:00 05/27/25 08:22 1 MG Multivitamins/ Minerals 1 tab DAILY PO 05/26/25 10:00 05/27/25 08:22 1 TAB Metoclopramide HCl 10 mg Q8HPRN PRN IV 05/26/25 15:30 05/27/25 00:38 10 MG Insulin Human Regular Q4HR SC 05/27/25 00:00 05/27/25 10:00 3 UNITS Laboratory Results Laboratory Tests 05/26/25 05:18 05/26/25 17:51 Chemistry Test 05/26/25 15:23 05/26/25 17:51 Calcium Level 8.5 mg/dL (8.7-10.4) L 8.4 mg/dL (8.7-10.4) L Urinalysis Test 05/26/25 09:33 Urine Color Light-orange (Yellow) Urine Clarity Turbid (Clear) H Urine pH 6.0 (5.0-9.0) Urine Specific [place] 1.031 (1.001-1.035) Urine Protein Trace (Negative) H Urine Ketones 4+ (Negative) H Urine Blood Trace /uL (Negative) H Urine Nitrite Negative (Negative) Urine Bilirubin Negative (Negative) Urine Urobilinogen Normal mg/dL (Negative) Urine Leukocyte Esterase 3+ /uL (Negative) Urine RBC 2 /hpf (0 - 4) Urine Microscopic WBC 41 /HPF (0-5) H Urine Squamous Epithelial Cells Mod /hpf (<5) Urine Bacteria None seen /hpf (None Seen) Urine Hyaline Casts Few /lpf (0 - 2) Urine Mucus Few (None Seen) Urine Yeast (Budding) Occasional /hpf (None Urine Glucose 4+ mg/dL (Normal) H Microbiology Microbiology Date/Time Source Procedure Growth Status 05/26/25 17:00 Voided Urine Urine Culture - Preliminary Resulted 05/26/25 05:18 Blood Blood Culture - Preliminary NO GROWTH AFTER 24 HOURS OF INCUBATION. Resulted Labs and/or images reviewed: Labs reviewed by me Assessment/Plan Assessment/Plan Diabetic ketoacidosis Type 1 diabetes mellitus uncontrolled Hypothyroidism Sepsis Leukocytosis Six weeks Continuing current management. Continuing with IV fluid. The patient out of DKA. We will start the patient on sliding scale insulin and Lantus. We will restart diet. Continuing with IV cefepime and linezolid Follow up with culture This medical document was created using an electronic medical record system with [employer] direct computerized dictation system. Although this document has been carefully reviewed, there may still be some phonetic and typographical errors. These areas are purely typographical due to imperfections of the software programs, and do not reflect any compromise in the patient's medical care. Plan discussed with: Patient My Orders Orders - EKATERINA LEE MD Procedure Category Date Status Time Urine Bacterial VIBHA 05/26/25 In Process Culture 17:04 Date of Service: May 27, 2025 Billing Provider: EKATERINA LEE MD Common Visit Codes: [id number] INP/OBS CARE(HIGH) EKATERINA LEE MD May 27, 2025 11:43
[2025-05-27] MEDS ORDERED: DEXTROSE (50%) 50ML SYRG IV PRN ×5 (13:15→14:15)
[2025-05-27] MEDS ORDERED: ACCU-CHEK COMFORT CURVE STRIP VI SCH ×4 (16:00→17:00)
[2025-05-27] MEDS: ACCU-CHEK COMFORT CURVE STRIP VI SCH (16:13)
[2025-05-28] VITALS (12 sets, daily range): BP systolic 112–135; BP diastolic 58–84; PULSE 77–116; RESP 13–20; TEMP 98.5–99.5; O2SAT 95–100
[2025-05-28 06:07] LABS: Chlamydia Trachomatis, NAA Negative (Negative); Neisseria gonorrhoeae, NAA Negative (Negative)
[2025-05-28] MEDS: INSULIN LANTUS (GLARGINE) 1 /0.01ml (100units/ml) SC SCH (09:55)
--- NOTE | 2025-05-28 11:59 | DVHPN2 ---
Subjective Patient is seen and examined at bedside. No complaint today. Reviewed: Care Plan, H&P, Labs, Medications, Previous Orders, Radiology Changes from previous H/P or p: No Changes Objective Vitals Vital Signs Date Time Temp Pulse Resp B/P (MAP) Pulse Ox O2 Delivery O2 Flow Rate FiO2 05/28/25 10:00 78 05/28/25 10:00 18 97 Room Air* 0 21 05/28/25 10:00 117/71 (86) 05/28/25 08:00 99.5 99.5 Intake/Output Intake and Output 05/28/25 07:00 Intake Total 1045.0 ml Output Total 800 ml Balance 245.0 ml Intake Oral 220 ml IV Total 825.0 ml Output Urine Total 800 ml General Appearance: Alert, Oriented X3, Cooperative, No acute distress HEENT: Atraumatic, PERRLA, EOMI, Mucous membr. moist/pink Neck: Supple Lungs: Clear to auscultation, Normal air movement Cardiovascular: Regular rate, Normal S1, Normal S2, No murmurs, Gallops, Rubs Abdomen: Normal bowel sounds, Soft, No tenderness Neuro: Cranial nerves 3-12 NL Psych/Mental Status: Mental status NL Medications Current Medications Medications Dose Ordered Sig/Nando Route Start Time Stop Time Status Last Admin Dose Admin Acetaminophen 325 mg Q4HP PRN PO 05/25/25 23:30 05/27/25 04:36 325 MG Docusate Sodium 100 mg BIDPRN PRN PO 05/25/25 23:30 Nitroglycerin 0.4 mg Q5MINP PRN SL 05/25/25 23:30 Morphine Sulfate 2 mg Q30M PRN IV 05/25/25 23:30 Linezolid 300 ml @ 150 mls/hr Q12HR@0500,1700 IV 05/26/25 05:00 05/28/25 05:04 150 MLS/HR Cefepime HCl 50 ml @ 12.5 mls/hr Q8HR IV 05/26/25 06:00 05/28/25 05:04 12.5 MLS/HR Pyridoxine HCl 100 mg DAILY PO 05/27/25 10:00 Folic Acid 1 mg DAILY PO 05/27/25 10:00 05/27/25 08:22 1 MG Multivitamins/ Minerals 1 tab DAILY PO 05/26/25 10:00 05/27/25 08:22 1 TAB Metoclopramide HCl 10 mg Q8HPRN PRN IV 05/26/25 15:30 05/28/25 09:29 10 MG Diagnostic Test (Pha) 1 strip IQ4HR 05/27/25 16:00 UNV Insulin Human Regular IQ4HR SC 05/27/25 16:00 UNV Dextrose 50 ml UD PRN IV 05/27/25 13:15 UNV Diagnostic Test (Pha) 1 strip ACHS 05/27/25 17:00 Cancel Insulin Human Regular HS SC 05/27/25 22:00 Cancel Insulin Human Regular AC SC 05/27/25 17:00 Cancel Dextrose 50 ml UD PRN IV 05/27/25 13:15 Cancel Insulin Human Regular IQ4HR SC 05/27/25 16:00 UNV Dextrose 50 ml UD PRN IV 05/27/25 14:15 UNV Diagnostic Test (Pha) 1 strip IQ4HR 05/27/25 16:00 05/28/25 08:34 1 STRIP Insulin Human Regular IQ4HR SC 05/27/25 16:00 05/28/25 08:16 9 UNITS Dextrose 50 ml UD PRN IV 05/27/25 14:15 Insulin Glargine 15 units DAILY@1000 IL 05/28/25 10:00 05/28/25 09:55 15 UNITS Laboratory Results Laboratory Tests 05/26/25 05:18 05/26/25 17:51 Urinalysis Test 05/26/25 09:33 Urine Color Light-orange (Yellow) Urine Clarity Turbid (Clear) H Urine pH 6.0 (5.0-9.0) Urine Specific [place] 1.031 (1.001-1.035) Urine Protein Trace (Negative) H Urine Ketones 4+ (Negative) H Urine Blood Trace /uL (Negative) H Urine Nitrite Negative (Negative) Urine Bilirubin Negative (Negative) Urine Urobilinogen Normal mg/dL (Negative) Urine Leukocyte Esterase 3+ /uL (Negative) Urine RBC 2 /hpf (0 - 4) Urine Microscopic WBC 41 /HPF (0-5) H Urine Squamous Epithelial Cells Mod /hpf (<5) Urine Bacteria None seen /hpf (None Seen) Urine Hyaline Casts Few /lpf (0 - 2) Urine Mucus Few (None Seen) Urine Yeast (Budding) Occasional /hpf (None Urine Glucose 4+ mg/dL (Normal) H Microbiology Microbiology Date/Time Source Procedure Growth Status 05/26/25 17:00 Voided Urine Urine Culture - Preliminary Resulted 05/26/25 15:10 Nose MRSA Screen - Final Complete 05/26/25 05:18 Blood Blood Culture - Preliminary NO GROWTH AFTER 48 HOURS OF INCUBATION. Resulted Labs and/or images reviewed: Labs reviewed by me Assessment/Plan Assessment/Plan Diabetic ketoacidosis Type 1 diabetes mellitus uncontrolled Hypothyroidism Sepsis Leukocytosis Six weeks Continuing current management. Continuing with IV fluid. The patient out of DKA. We will start the patient on sliding scale insulin and Lantus. We will restart diet. Continuing with IV cefepime and linezolid Follow up with culture This medical document was created using an electronic medical record system with [employer] computerized dictation system. Although this document has been carefully reviewed, there may still be some phonetic and typographical errors. These areas are purely typographical due to imperfections of the software programs, and do not reflect any compromise in the patient's medical care. Plan discussed with: Patient My Orders Orders - EKATERINA LEE MD Procedure Category Date Status Time Transfer Orders XFER 05/27/25 Transmitted 12:59 Glucose Blood PHA 05/27/25 In Process (Accu-Chek Comfort 16:00 Insulin R (Human) PHA 05/27/25 In Process (Insulin R) 16:00 Dextrose 50% Syringe PHA 05/27/25 In Process 14:15 Insulin Lantus PHA 05/28/25 In Process (Glargine) (Lantus) 10:00 Advance Diet As FREDY 05/27/25 In Process Tolerated 15:51 Full Liq Diet DIET 05/27/25 Transmitted Dinner Metformin PHA 05/28/25 Verified Hydrochloride 12:00 Date of Service: May 27, 2025 Billing Provider: EKATERINA LEE MD Common Visit Codes: [id number] INP/OBS CARE(HIGH) EKATERINA LEE MD May 28, 2025 11:58
[2025-05-28] MEDS ORDERED: PROM6.2520 PO (13:29)
[2025-05-28] MEDS ORDERED: NITR100C6 PO (13:29)
[2025-05-28] MEDS ORDERED: INSU1.2I SC (13:29)
--- NOTE | 2025-05-28 13:30 | DVHDS2 ---
Discharge Summary Date of Admission May 25, 2025 at 23:29 Date of Discharge: May 28, 2025 Admitting Diagnosis Diabetic ketoacidosis Type 1 diabetes mellitus uncontrolled Hypothyroidism Sepsis Leukocytosis Six weeks Labs/Diagnostic Data: Laboratory Results Test 05/28/25 12:19 05/26/25 17:51 05/26/25 09:33 05/26/25 05:18 POC Glucose 170 mg/dl (70-106) Sodium Level 138 mmol/L (136-145) Potassium Level 3.5 mmol/L (3.5-5.1) Chloride Level 111 mmol/L (98-107) Carbon Dioxide Level 16 mmol/L (20-31) Anion Gap 11 (5-15) Blood Urea Nitrogen < 5 mg/dL (9-23) Creatinine 0.48 mg/dL (0.550-1.02) Glomerular Filtration Rate Calc 135 mL/min (>90) BUN/Creatinine Ratio 10.4 (10.0-20.0) Serum Glucose 114 mg/dL (74-106) Calcium Level 8.4 mg/dL (8.7-10.4) Beta-Hydroxybutyric Acid 0.790 mmol/L (< 0.4) Urine Color Light-orange (Yellow) Urine Clarity Turbid (Clear) Urine pH 6.0 (5.0-9.0) Urine Specific [place] 1.031 (1.001-1.035) Urine Protein Trace (Negative) Urine Ketones 4+ (Negative) Urine Blood Trace /uL (Negative) Urine Nitrite Negative (Negative) Urine Bilirubin Negative (Negative) Urine Urobilinogen Normal mg/dL (Negative) Urine Leukocyte Esterase 3+ /uL (Negative) Urine RBC 2 /hpf (0 - 4) Urine Microscopic WBC 41 /HPF (0-5) Urine Squamous Epithelial Cells Mod /hpf (<5) Urine Bacteria None seen /hpf (None Seen) Urine Hyaline Casts Few /lpf (0 - 2) Urine Mucus Few (None Seen) Urine Yeast (Budding) Occasional /hpf (None Urine Glucose 4+ mg/dL (Normal) Urine Opiates Screen Neg (NEGATIVE) Urine Fentanyl Screen Neg (NEGATIVE) Urine Barbiturates Screen Neg (NEGATIVE) Urine Phencyclidine Screen Neg (NEGATIVE) Urine Amphetamines Screen Neg (NEGATIVE) Urine Benzodiazepines Screen Neg (NEGATIVE) Urine Cocaine Screen Neg (NEGATIVE) Urine Cannabinoids Screen Neg (NEGATIVE) Chlamydia trachomatis (LISA) Negative (Negative) Neisseria gonorrhoeae (LISA) Negative (Negative) White Blood Count 9.1 10^3/uL (4.4-10.8) Red Blood Count 4.13 10^6/uL (4.0-5.20) Hemoglobin 12.4 g/dL (12.2-16.2) Hematocrit 36.3 % (36.0-46.0) Mean Corpuscular Volume 87.8 fL (80.0-100.0) Mean Corpuscular Hemoglobin 30.1 pg (28.0-32.0) Mean Corpuscular Hemoglobin Concent 34.3 g/dL (32.0-36.0) Red Cell Distribution Width 13.3 % (11.8-14.3) Platelet Count 293 10^3/uL (140-450) Mean Platelet Volume 7.9 fL (6.9-10.8) Neutrophils (%) (Auto) 71.5 % (37.0-80.0) Lymphocytes (%) (Auto) 18.8 % (10.0-50.0) Monocytes (%) (Auto) 8.2 % (0.0-12.0) Eosinophils (%) (Auto) 1.0 % (0.0-7.0) Basophils (%) (Auto) 0.5 % (0.0-2.0) Neutrophils # (Auto) 6.5 10 ^3/uL (1.6-8.6) Lymphocytes # (Auto) 1.7 10 ^3/uL (0.4-5.4) Monocytes # (Auto) 0.7 10 ^3/uL (0-1.3) Eosinophils # (Auto) 0.1 10 ^3/uL (0-0.8) Basophils # (Auto) 0 10 ^3/uL (0-0.2) Nucleated Red Blood Cells 0.0 % Hemoglobin A1c 7.0 % A1C (<5.7) Lactic Acid Level 0.9 mmol/L (0.4-2.0) Total Bilirubin 0.8 mg/dL (0.2-1.0) Aspartate Amino Transferase (AST) 13 U/L (13-40) Alanine Aminotransferase (ALT) 16 U/L (7-40) Alkaline Phosphatase 67 U/L (46-116) Total Protein 5.9 g/dL (5.7-8.2) Albumin 3.9 g/dL (3.2-4.8) Thyroid Stimulating Hormone (TSH) 1.56 uIU/mL (0.55-4.78) Beta HCG, Quantitative 14687.7 mIU/mL (1.5-4.2) Plasma/Serum Blood Alcohol < 3.0 mg/dL (<10) Test 05/26/25 04:02 05/26/25 00:00 05/25/25 21:45 05/25/25 19:22 Influenza Type A Antigen Negative (Negative) Influenza Type B Antigen Negative (Negative) SARS-CoV-2 Antigen (Rapid) Negative (NEGATIVE) Blood Gas Specimen Type Venous Blood Gas Sample Site Vbg - n/a Blood Gas Patient Temperature 37.0 Arterial Blood Date Drawn [id number] Matheus Test N/a Venous Blood pH 7.361 (7.320-7.430) Venous Blood pCO2 at Patient Temp 31.4 mmHg (38.0-54.0) Venous Blood pO2 at Patient Temp < 36.5 mmHg (23.0-48.0) Venous Blood HCO3 17.4 mmol/L (22.0-29.0) Venous Blood Base Excess -6.8 mmol/L (-2.0-3.0) Blood Gas Modality Room air FiO2 % 21.0 Serum Osmolality 292 mOsm/kg (278-298) Phosphorus Level 4.2 mg/dL (2.4-5.1) Magnesium Level 1.8 mg/dL (1.6-2.6) Other Laboratory Tests 05/26/25 17:51 05/26/25 05:18 Brief Hx & Hospital Course: This is a 24 years old female with past medical history diabetes type 1 came to emergency department because of intractable nausea and vomiting for three days. The patient was found to have sepsis with elevation of the WBC. Patient also found to be in DKA. The patient was admitted. The patient was put on insulin drip and subsequently switched to sliding scale insulin and Lantus. The patient was on IV antibiotic with linezolid and cefepime. The patient culture is negative. The patient subsequently out of DKA and able to tolerate diet without nausea and vomiting. The patient will be discharged home today. Advised her to continuing her home medication including Lantus and sliding scale. The patient states she ran out Lantus so I will refill her Lantus. Activity as tolerated. Diet per home diet. Follow up with OBGYN per schedule for her . Follow up with her primary care physician 1-2 weeks. Physical exam: HEENT: Normocephalic atraumatic pupils equal react to light and accommodation. Extraocular muscles intact, conjunctiva pink, oropharynx moist, no thrush, no exudate. Lymphatic: No lymphadenopathy Cardiovascular exam: S1, S2 was heard. No murmurs, rubs, gallops Lung: Clear on auscultation bilaterally, no wheeze, rale, rhonchi. GI: Abdominal soft, nondistended, nontenderness, positive bowel sounds. Extremity: No crepitus, cyanosis, edema. Pedal pulses present bilateral. Full range of motion. Skin: Normal turgor, no rash. Psych: Alert, oriented x3. Neurology: No focal deficits, cranial nerve II to XII grossly intact. This medical document was created using an electronic medical record system with [employer] dictation system. Although this document has been carefully reviewed, there may still be some phonetic and typographical errors. These areas are purely typographical due to imperfections of the software programs, and do not reflect any compromise in the patient's medical care. Condition at Discharge: Stable Final Diagnosis/Problems List Diabetic ketoacidosis Type 1 diabetes mellitus uncontrolled Hypothyroidism Sepsis Leukocytosis Six weeks Continuing current management. Continuing with IV fluid. The patient out of DKA. We will start the patient on sliding scale insulin and Lantus. We will restart diet. Continuing with IV cefepime and linezolid Follow up with culture This medical document was created using an electronic medical record system with [employer] dictation system. Although this document has been carefully reviewed, there may still be some phonetic and typographical errors. These areas are purely typographical due to imperfections of the software programs, and do not reflect any compromise in the patient's medical care. Discharge Disposition: Home Discharge Instruct/Medications Diet: Consistent carbohydrate Activity: No Restrictions, As Tolerated Follow Up/Referral: pcp 1-2 weeks Medications: see med list Scheduled Insulin Glargine (Toujeo Solostar), 30 UNIT SC HS Nitrofurantoin Monohyd Macro (Nitrofurantoin Monohydrat), 1 CAP PO BID Scheduled PRN Promethazine HCl (Promethazine HCl), 5 ML PO Q8HPRN PRN Discharge Statement: "Patient was advised to return to the ER or call 911 if any headaches, dizziness, shortness of breath, chest pain, abdominal pain, bleeding, fevers, or worsening of medical condition. Patient was counseled about treatment plan, medications, possible side effects, patientverbalized understanding. All questions were answered to the best of my ability. This discharge took greater then 30 minutes in planning, reviewing documentation, counseling the patient, and discussing with other team members." ASSESSMENT ASSESSMENT Assessment DKA Date of Service: May 28, 2025 Billing Provider: EKATERINA LEE MD Common Visit Codes: [id number] DISCH DAY >30min EKATERINA LEE MD May 28, 2025 13:30
== END 2025-05-28 15:30 | disposition home or self-care (01) | DRG 831 ==
LOC: ER 18:51 → OVERFLOW 23:29 → ICU CENTRL 05-26 15:03
PROVIDERS: ADMIT Internal Medicine; ATTEND Internal Medicine
DX: O98.811 Other maternal infectious and parasitic diseases complicating pregnancy, first trimester (principal); E10.10 Type 1 diabetes mellitus with ketoacidosis without coma; O24.011 Pre-existing type 1 diabetes mellitus, in pregnancy, first trimester; Z20.822 Contact with and (suspected) exposure to COVID-19; Z3A.01 Less than 8 weeks gestation of pregnancy; Z91.199 Patient's noncompliance with other medical treatment and regimen due to unspecified reason; Z85.028 Personal history of other malignant neoplasm of stomach; Z80.0 Family history of malignant neoplasm of digestive organs; Z79.4 Long term (current) use of insulin
CPT/HCPCS: 36415; 36600; 76700; 76801; 80048; 80053; 80307; 80320; 81001; 82010; 82805; 82962; 83036; 83605; 83735; 83930; 84100; 84443; 84702; 85025; 87040; 87081; 87086; 87426; 87804; 96361; 96374; 99291; G0378; J1815; J2003; J2405; J7060; Q0162